=== PATIENT | male | born 1940 | race Caucasian/White ===

== ENCOUNTER 2017-10-27 08:44 | Emergency (ER) | payer MEDICARE, OTHER ==
[~2017-10-27] VITALS: Ht 177.8 cm; Wt 114.0 kg
[2017-10-27 08:55] VITALS: BP 117/77
[2017-10-27] MEDS ORDERED: FUROSEMIDE20 MG PO (09:08)
[2017-10-27] MEDS ORDERED: ATENOLOL25 MG PO (09:08)
[2017-10-27] MEDS ORDERED: ATORVASTATIN CA20 MG PO (09:09)
[2017-10-27] MEDS ORDERED: AMLODIPINE5 MG PO (09:09)
[2017-10-27] MEDS ORDERED: EPLERENONE25 MG PO (09:09)
[2017-10-27] MEDS ORDERED: AVAPRO300 MG PO (09:10)
[2017-10-27] MEDS ORDERED: ASPIRIN81 MG PO (09:10)
[2017-10-27] MEDS ORDERED: CENTRUM PO (09:10)
[2017-10-27 09:48] LABS: URINE BLOOD DIPSTICK LARGE (NEGATIVE); URINE GLUCOSE - DIPSTICK NEGATIVE (NEGATIVE); URINE KETONE NEGATIVE (NEGATIVE); URINE PH 6.5 (4.5-8.0); URINE PROTEIN - DIPSTICK 100 mg/dL (NEG-TRACE); URINE SPECIFIC GRAVITY 1.025
[2017-10-27 10:25] LABS: URINE BILIRUBIN - DIPSTICK SMALL (NEGATIVE); URINE CLARITY CLOUDY; URINE COLOR DK. YELLOW; URINE LEUK ESTERASE MODERATE (NEGATIVE); URINE NITRITE - DIPSTICK POSITIVE (Negative); URINE RBC 25-50 RBC/hpf (0-5)
[2017-10-27 10:26] LABS: URINE BACTERIA MANY hpf; URINE EPITHELIAL CELLS MODERATE EPI/hpf (0-FEW); URINE WBC 20-50 WBC/hpf (0-5)
[2017-10-27] MEDS ORDERED: KEFLEX500 MG PO (10:29)
[2017-10-27] MEDS ORDERED: PYRIDIUM200 MG PO (10:29)
== END 2017-10-27 11:00 | disposition home or self-care (01) ==
LOC: ED 08:44
PROVIDERS: Emergency Medicine
DX: N39.0 Urinary tract infection, site not specified (principal); R30.0 Dysuria; B96.20 Unspecified Escherichia coli [E. coli] as the cause of diseases classified elsewhere

== ENCOUNTER 2017-10-30 09:34 | Emergency (ER) | payer MEDICARE, OTHER ==
[~2017-10-30] VITALS: Ht 177.8 cm; Wt 120.0 kg
[~2017-10-30 09:34] MED LIST: AMLODIPINE5 MG PO; ASPIRIN81 MG PO; ATENOLOL25 MG PO; ATORVASTATIN CA20 MG PO; AVAPRO300 MG PO; CENTRUM PO; EPLERENONE25 MG PO; FUROSEMIDE20 MG PO; KEFLEX500 MG PO; PYRIDIUM200 MG PO
[2017-10-30 10:25] LABS: URINE BILIRUBIN - DIPSTICK SMALL (NEGATIVE); URINE BLOOD DIPSTICK TRACE-INTACT (NEGATIVE); URINE CLARITY SL CLOUDY; URINE COLOR ORANGE; URINE GLUCOSE - DIPSTICK 100 mg/dL (NEGATIVE); URINE KETONE NEGATIVE (NEGATIVE); URINE LEUK ESTERASE TRACE (NEGATIVE); URINE NITRITE - DIPSTICK POSITIVE (Negative); URINE PROTEIN - DIPSTICK 30 mg/dL (NEG-TRACE); URINE SPECIFIC GRAVITY 1.015
[2017-10-30 10:41] LABS: ALBUMIN 4.3 g/dL (3.2-5.0); ALKALINE PHOSPHATASE 90 u/l (38-126); ANION GAP 18 (6-22 (CALC)); BILIRUBIN, TOTAL 0.9 mg/dL (0.0-1.4); BUN 19 mg/dL (8-23); CARBON DIOXIDE 26 mmol/l (22-30); CHLORIDE 105 mmol/l (95-108); POTASSIUM 4.2 mmol/l (3.5-5.1); SGOT/AST 43 u/l (19-48); SGPT/ALT 55 u/l (11-66); SODIUM 145 mmol/l (137-146); TOTAL PROTEIN 7.3 g/dL (6.3-8.2)
[2017-10-30 10:46] LABS: BUN/CREATININE RATIO 21 (12-20 (CALC)); CREATININE 0.9 mg/dL (0.7-1.3); GFR > 60 ML/MIN (>=60 (CALC)); GFR FOR AFR.AMER. > 60 ML/MIN (>=60 (CALC))
[2017-10-30 11:01] LABS: URINE BACTERIA FEW hpf; URINE SQUAMOUS EPITHELIAL CELL FEW EPI/hpf (0-FEW)
[2017-10-30 11:12] LABS: HEMATOCRIT 43.6 % (39.0-50.0); HEMOGLOBIN 14.6 g/dl (14.0-18.0); IMMATURE GRANULOCYTES 0.5 % (0.0-1.0); MEAN CORPUSCULAR HGB 32.8 pG CALC (26.0-32.0); MEAN CORPUSCULAR HGB CONC 33.5 g/L CALC (32.0-36.0); NEUT# 7.07 thou/uL (1.82-7.42); RED BLOOD COUNT 4.45 mill/uL (4.70-6.10); RED CELL DISTRI WIDTH 12.9 % (11.5-15.5)
[2017-10-30] MEDS ORDERED: TAMSULOSIN0.4 MG PO (13:03)
[2017-10-30 13:23] VITALS: BP 156/77
== END 2017-10-30 13:34 | disposition home or self-care (01) ==
LOC: ED 09:34
PROVIDERS: Emergency Medicine
DX: N39.0 Urinary tract infection, site not specified (principal); R35.0 Frequency of micturition; N40.1 Benign prostatic hyperplasia with lower urinary tract symptoms; R50.9 Fever, unspecified
CPT/HCPCS: Q9967